=== PATIENT | male | born 1995 | race African-American/Black ===

== ENCOUNTER 2018-07-05 22:58 | Emergency (ER) | payer BC, MEDICAID ==
[~2018-07-05] VITALS: Ht 182.9 cm; Wt 71.0 kg
[2018-07-05] MEDS ORDERED: ALBUTEROL (0.083%) 2.5MG/3ML NEB HHN STA (23:46)
[2018-07-05] MEDS ORDERED: PREDNISONE 20MG TABLET PO STA (23:46)
[2018-07-05] MEDS ORDERED: IPRATROPIUM BROMIDE (0.02%) 0.5MG/2.5ML NEB HHN STA (23:46)
[2018-07-06] MEDS ORDERED: ALBUTEROL (0.083%) 2.5MG/3ML NEB HHN STA (01:22)
[2018-07-06 02:15] VITALS: BP 140/80
== END 2018-07-06 02:57 | disposition home or self-care (01) ==
LOC: ER 22:58
DX: J45.901 Unspecified asthma with (acute) exacerbation (principal); G43.909 Migraine, unspecified, not intractable, without status migrainosus; F12.10 Cannabis abuse, uncomplicated
CPT/HCPCS: 94644; 99285; J7512; J7611

== ENCOUNTER 2018-07-21 19:48 | Emergency (ER) | payer MEDICAID ==
[~2018-07-21] VITALS: Ht 182.9 cm; Wt 74.0 kg
[2018-07-21] MEDS ORDERED: IBUPROFEN 800MG TABLET PO ONE (22:30)
[2018-07-22 00:11] VITALS: BP 122/82
== END 2018-07-22 00:11 | disposition home or self-care (01) ==
LOC: ER 19:48
DX: S62.604D Fracture of unspecified phalanx of right ring finger, subsequent encounter for fracture with routine healing (principal); M79.644 Pain in right finger(s); G43.909 Migraine, unspecified, not intractable, without status migrainosus; F12.10 Cannabis abuse, uncomplicated; W18.39XA Other fall on same level, initial encounter; Y93.61 Activity, american tackle football; Y92.321 Football field as the place of occurrence of the external cause; Y99.8 Other external cause status
CPT/HCPCS: 29130; 73140; 99283